=== PATIENT | male | born 2000 | race Asian ===

== ENCOUNTER 2022-12-07 01:41 | Emergency (ER) | payer OTHER ==
[2022-12-07] MEDS ORDERED: Ondansetron PF 4 MG/2 ML Vial ONE (01:58)
== END 2022-12-07 03:30 | disposition home or self-care (01) ==
LOC: ERS 01:41
DX: F10.129 Alcohol abuse with intoxication, unspecified (principal); F17.290 Nicotine dependence, other tobacco product, uncomplicated
CPT/HCPCS: 96361; 96374; J2405